=== PATIENT | male | born 1990 | race Caucasian/White ===

== ENCOUNTER 2016-08-23 18:45 | Emergency (ER) | payer SELFPAY ==
[2016-08-23] MEDS ORDERED: HYDROcod/ACET 5/325 Prepack 6 PO STA (19:44)
[2016-08-23] MEDS ORDERED: predniSONE 20 MG TABLET PO STA (19:44)
[2016-08-23] MEDS ORDERED: CYCLOBENZAPRINE 10 MG TABLET PO STA (19:44)
[2016-08-23] MEDS ORDERED: HYDROcod/ACET 5/325 Prepack 6 PO ONE (19:54)
[2016-08-23] MEDS ORDERED: predniSONE 20 MG TABLET ONE (19:55)
[2016-08-23] MEDS ORDERED: CYCLOBENZAPRINE 10 MG TABLET PO ONE (19:55)
== END 2016-08-23 20:18 | disposition home or self-care (01) ==
DX: M54.42 Lumbago with sciatica, left side (principal); G89.29 Other chronic pain; R03.0 Elevated blood-pressure reading, without diagnosis of hypertension; F17.200 Nicotine dependence, unspecified, uncomplicated
CPT/HCPCS: 99283; A9270; J7512

== ENCOUNTER 2020-03-31 15:35 | Emergency (ER) | payer MEDICAID ==
[2020-03-31] MEDS ORDERED: cefTRIAXone 1 GM VIAL IVP STA (16:19)
--- NOTE | 2020-03-31 16:22 | ED Physician Documentation ---
History of Present Illness - Stated complaint Stated Complaint: TOOTH/JAW PX - Chief complaint Chief Complaint: Heent - History obtained from History obtained from: Patient - Additonal information Additional information: 29-year-old male presents to the emergency department for right-sided facial swelling and pain. Symptoms began about 4 nights ago with progressive swelling since. He has had no fevers or cough. But reports that he can no longer eat or drink because he cannot open his jaw due to pain. 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 No fevers, no dysphonia, full range of motion of the neck. No muffled voice. Review of Systems Constitutional: denies: Fever, Chills Eyes: reports: Reviewed and negative Ears: reports: Reviewed and negative Nose: reports: Reviewed and negative Throat: reports: Dental pain / toothache, Other (trismus, poor dentition globally, right sided facial swelling). denies: Swollen tonsils, Swallowed foreign body Cardiac: reports: Reviewed and negative Respiratory: reports: Reviewed and negative GI: reports: Reviewed and negative : reports: Reviewed and negative Skin: reports: Reviewed and negative Musculoskeletal: reports: Reviewed and negative PD PAST MEDICAL HISTORY - Past Medical History Past Medical History: No Musculoskeletal: Chronic back pain - Past Surgical History Past Surgical History: No - Present Medications Home Medications: Ambulatory Orders Medication Instructions Recorded Confirmed Cyclobenzaprine [Flexeril] 10 mg PO TID PRN #20 tablet 08/23/16 HYDROcod/ACETAM 5/325 [[place] 5/325] 1 - 2 ea PO Q6H PRN #10 tablet 08/23/16 predniSONE [Deltasone] 60 mg PO DAILY 5 Days tablet 08/23/16 Amox/Clav 875/125 [Augmentin] 1 each PO Q12H #20 tablet 03/31/20 - Allergies Allergies/Adverse Reactions: Allergies Allergy/AdvReac Type Severity Reaction Status Date / Time No Known Drug Allergies Allergy Verified 03/31/20 15:39 - Social History Does the pt smoke?: Yes Smoking Status: Current every day smoker Does the pt drink ETOH?: No Does the pt have substance abuse?: No - Immunizations Immunizations are current?: No Immunizations: TDAP >10years/unknown - POLST Patient has POLST: No PD ED PE EXPANDED - General General: Alert, Well developed/nourished, In Pain - HEENT HEENT: Atraumatic, Moist mucous membranes, Pharyngeal erythema, Dental decay, Other (Teeth in generally poor repair. Positive trismus. Positive right-sided facial swelling from mid cheek to the angle of the mandible. No tongue swelling or swelling noted on the floor of the mouth. Normal swallow. Fairly significant generalized gum erythema.) Results - Vitals Vitals: Vital Signs - 24 hr 03/31/20 03/31/20 15:39 15:53 Temperature 36.6 C 36.6 C Heart Rate 53 L 55 L Respiratory 16 16 Rate Blood Pressure 123/68 123/66 O2 Saturation 96 100 Oxygen O2 Source Room air - Labs Labs: Laboratory Tests 03/31/20 03/31/20 16:25 16:25 WBC 12.2 H RBC 4.20 L Hgb 13.6 L Hct 38.7 L MCV 92.1 MCH 32.4 H MCHC 35.1 RDW 12.6 Plt Count 187 MPV 9.1 Neut # (Auto) 9.0 H Lymph # (Auto) 2.0 Kern # (Auto) 1.0 Eos # (Auto) 0.1 Baso # (Auto) 0.1 Absolute Nucleated RBC 0.00 Nucleated RBC % 0.0 Sodium 138 Potassium 3.8 Chloride 103 Carbon Dioxide 24 Anion Gap 11.0 BUN 19 Creatinine 0.9 Estimated GFR (MDRD) 100 Glucose 116 H Calcium 8.8 Total Bilirubin 0.8 AST 24 ALT 16 Alkaline Phosphatase 54 Total Protein 7.4 Albumin 4.1 Globulin 3.3 Albumin/Globulin Ratio 1.2 Lipase 25 - Rads (name of study) CT max/fac Radiology: Final report received (Soft tissue edema is seen in the right buccal area. No discrete well-formed abscess is seen. Dental caries and periapical lucency involving the right maxillary second molar.) PD MEDICAL DECISION MAKING - ED course Complexity details: reviewed results, re-evaluated patient, considered differential, d/w patient ED course: 29-year-old male presents to the emergency department with 4 days of right-sided facial swelling and right upper mouth pain. He does have mild trismus. He has a very poor dentition and has not seen a dentist in greater than 20 years. Given the trismus I was concerned about deeper space infection and a CT scan was completed. There is no well-formed abscess. Please see the fully dictated no te. Patient was given ceftriaxone here in the emergency department and will be discharged with a 10-day course of Augmentin. I also recommend ibuprofen for analgesia. We did discuss very close dental follow-up. Emergent return precautions discussed for hot potato voice, muffled voice, inability to tolerate oral secretions, severe facial swelling or if his symptoms fail to improve Departure - Departure Disposition: 01 Home, Self Care Clinical Impression: Right facial swelling, Infected dental carries Instructions: ED Abscess Dental, ED Dental Abscess Facial Cellulitis Prescriptions: Amox/Clav 875/125 [Augmentin] 1 each PO Q12H #20 tablet Comments: Miky you have multiple cavities that are causing infection in your face. However reassuringly the CT scan did not show any acute abscess. Please fill the prescription for the antibiotics and begin taking as directed. It is very important that you follow-up with a dentist as soon as possible. [facility] in the [facility] does have dental clinics and walk-in appointments are available. This may be an option for emergent dental care. Please rinse your mouth with warm salt water 3 times a day. Take ibuprofen or Tylenol [id number] for pain. If you are having worsening facial swelling, any fevers, develop inability to tolerate oral secretions, cannot turn your neck, or have a muffled voice then please return immediately to the emergency department
[2020-03-31] MEDS ORDERED: IOVERSOL 320 100 ML VIAL IVP ONE ×2 (16:28→19:23)
[2020-03-31 16:29] LABS: BASOPHILS # (AUTO) 0.1 10^3/uL (0.0-0.1); BASOPHILS % (AUTO) 0.5 %; EOSINOPHILS # (AUTO) 0.1 10^3/uL (0.0-0.7); HGB - HEMOGLOBIN 13.6 g/dL (14.0-18.0); LYMPHOCYTES % (AUTO) 16.6 %; MEAN CORPUSCULAR HEMOGLOBIN 32.4 pg (27.0-31.0); MEAN CORPUSCULAR HGB CONC 35.1 g/dL (32.0-36.0); MEAN CORPUSCULAR VOLUME 92.1 fL (80.0-94.0); MEAN PLATELET VOLUME 9.1 fL (7.4-11.4); MONOCYTES % (AUTO) 7.8 %; NEUTROPHILS % (AUTO) 73.7 %; PLT - PLATELET COUNT 187 10^3/uL (130-450); RED CELL DISTRIBUTION WIDTH 12.6 % (12.0-15.0); WHITE BLOOD COUNT 12.2 x10^3/uL (4.8-10.8)
[2020-03-31 16:42] LABS: ALBUMIN 4.1 g/dL (3.2-5.5); ALBUMIN/GLOBULIN RATIO 1.2 (1.0-2.2); BILIRUBIN,TOTAL 0.8 mg/dL (0.2-1.0); CALCIUM 8.8 mg/dL (8.5-10.3); CREATININE 0.9 mg/dL (0.6-1.2); TOTAL PROTEIN 7.4 g/dL (6.7-8.2)
--- NOTE | 2020-03-31 17:41 | CT Report ---
PROCEDURE: MAXILLOFACIAL W INDICATIONS: upper dental abscess right side with trismus CONTRAST: IV CONTRAST: Optiray 320 ml: 100 PO CONTRAST: *NO PO CONTRAST TECHNIQUE: After the administration of intravenous contrast, 3.0 mm axial sections acquired from the mid-neck to the frontal sinuses, with coronal reformatting. For radiation dose reduction, the following was use d: automated exposure control, adjustment of mA and/or kV according to patient size. COMPARISON: None. FINDINGS: Image quality: Excellent. Soft tissues: Soft tissue edema is seen involving the right buccal region. No discrete fluid collect ion or abscess is seen. No significantly enlarged lymph nodes. The included portions of the brain de monstrate no acute abnormality. Vascular: Visualized vascular structures appear patent throughout. Bony vascular foramina and canal s appear normal. Bones: Facial bones appear intact, without fractures, erosions, or destruction. Visualized portions of the skull base and auditory canals also appear normal. Dental caries and periapical lucencies are seen involving the right maxillary second molar. Incompletely erupted maxillary third molars are see n bilaterally. Sinuses: Mild mucosal thickening is seen in the right maxillary sinus and the anterior ethmoid air c ells. Paranasal sinuses are and lateral aerated without fluid levels, mucosal thickening, or mucocele s. Mastoid air cells are aerated. IMPRESSION: 1. Soft tissue edema is seen in the right buccal area. No discrete well-formed abscess is seen. 2. Dental caries and periapical lucency involving the right maxillary second molar. Reviewed by: Dominic Peñaloza MD on 03/31/2020 5:40 PM PDT Approved by: Dominic Peñaloza MD on 03/31/2020 5:40 PM PDT Station ID: [id number]
[2020-03-31 18:38] VITALS: BP 120/70
== END 2020-03-31 18:37 | disposition home or self-care (01) ==
LOC: ED 15:35
DX: K04.7 Periapical abscess without sinus (principal); K02.9 Dental caries, unspecified; R22.0 Localized swelling, mass and lump, head; F17.200 Nicotine dependence, unspecified, uncomplicated
CPT/HCPCS: 36415; 70487; 80053; 83690; 85025; 96374; 99283; 99284; Q9967

== ENCOUNTER 2020-04-27 08:57 | Emergency (ER) | payer OTHER, MEDICAID ==
[2020-04-27] MEDS ORDERED: CHERRY SYRUP 10 ML UDC PO ONE (09:25)
[2020-04-27] MEDS ORDERED: KETOROLAC 60 MG/2 ML VIAL IM STA (09:25)
[2020-04-27] MEDS ORDERED: DEXAMETHASONE 10 MG/ML VIAL PO STA (09:25)
--- NOTE | 2020-04-27 09:52 | ED Physician Documentation ---
PD HPI UPPER EXT INJURY - Stated complaint Stated Complaint: NECK PX - Chief complaint Chief Complaint: Trauma Hd/Nk - History obtained from History obtained from: Patient - History of Present Illness Location: Left, Shoulder Type of injury: Other (heavy lifting at work) Where injury occurred: Work Timing - onset: How many days ago (3) Timing - duration: Days (3) Timing - details: Gradual onset, Still present Improved by: Rest, Immobilization Worsened by: Moving, Palpating Associated symptoms: No: Weakness, Numbness, Tingling, Swelling Contributing factors: No: Anticoagulated, Prior ortho surgery Similar symptoms before: Has not had sx before Recently seen: Emergency Dept - Additonal information Additional information: Previously well 29-year-old male has developed pain in his left shoulder after lifting some very heavy boards. He states that the shoulder hurt a little bit a t first and he was able to complete his day of work after living lifting several boards that way 60 pounds apiece. He states that he is lifted these previously without injuring himself and he did not feel that at the time the injury was significant. Over the next 2 days he had mounting pain and today he is unable to move his neck without severe pain. He is using a lidocaine patch and ibuprofen. Review of Systems Constitutional: denies: Fever Eyes: denies: Decreased vision Ears: denies: Ear pain Throat: denies: Sore throat Cardiac: denies: Chest pain / pressure Respiratory: denies: Dyspnea, Cough GI: denies: Abdominal Pain, Nausea, Vomiting : denies: Dysuria Skin: denies: Rash Musculoskeletal: reports: Neck pain, Extremity pain, Joint pain. denies: Back pain, Joint swelling Neurologic: denies: Generalized weakness, Focal weakness, Numbness PD PAST MEDICAL HISTORY - Past Medical History Past Medical History: Yes Cardiovascular: None Respiratory: Asthma Neuro: None Endocrine/Autoimmune: None GI: None : None HEENT: None Psych: None Musculoskeletal: Chronic back pain Derm: Other - Past Surgical History Past Surgical History: No - Present Medications Home Medications: Ambulatory Orders Medication Instructions Recorded Confirmed Hydrocodone/Acetaminophen 1 - 2 each PO Q6H PRN #14 tablet 04/27/20 [Hydrocodone-Acetamin 5-325 mg] Ibuprofen 800 mg PO Q8HR PRN 04/27/20 04/27/20 Lidocaine Patch 5% [Lidoderm Patch] 1 each TOP DAILY PRN 04/27/20 04/27/20 Meloxicam 15 mg PO DAILY PRN #20 tablet 04/27/20 - Allergies Allergies/Adverse Reactions: Allergies Allergy/AdvReac Type Severity Reaction Status Date / Time No Known Drug Allergies Allergy Verified 04/27/20 09:02 - Social History Does the pt smoke?: No Smoking Status: Former smoker Does the pt drink ETOH?: No Does the pt have substance abuse?: Yes Substance Use and Type: Marijuana - Immunizations Immunizations are current?: No Immunizations: TDAP >10years/unknown - POLST Patient has POLST: No PD ED PE NORMAL - Vitals Vital signs reviewed: Yes (hypertensive ) - General General: Alert and oriented X 3, No acute distress, Well developed/nourished - HEENT HEENT: Atraumatic, PERRL, EOMI - Neck Neck: Supple, no meningeal sign, No bony TTP, Other (mild pain along the trapezius and over the supraspinatous. There is a lidocaine patch over the supraspinatous... ) - Derm Derm: Normal color, Warm and dry, No rash - Extremities Extremities: No deformity, No edema, Other (The patient is able to move the shoulder in a full range of motion without crepitance or obstruction he is able to hold the arm in abduction he has pain with all of this movement. Pain is centered over the trapezius over the supraspinatus. 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, No motor deficit, No sensory deficit, Normal speech Eye Opening: Spontaneous Motor: Obeys Commands Verbal: Oriented GCS Score: 15 - Psych Psych: Normal mood, Normal affect Results - Vitals Vitals: Vital Signs - 24 hr 04/27/20 09:02 Temperature 36.7 C Heart Rate 62 Respiratory 16 Rate Blood Pressure 147/91 H O2 Saturation 95 Oxygen O2 Source Room air - Rads (name of study) Left shoulder Radiology: Prelim report reviewed, EMP read indepedently, See rad report PD MEDICAL DECISION MAKING - ED course Complexity details: reviewed results, re-evaluated patient, considered differential, d/w patient ED course: 29-year-old male with pain in the left shoulder and over the supraspinatus appears to have strained his shoulder with heavy lifting and he is placed into a sling given a shot of Toradol and a dose of dexamethasone we will place him on some meloxicam and given some pain medication for use at night. Departure - Departure Disposition: 01 Home, Self Care Clinical Impression: Cervical radiculopathy Left shoulder strain Qualifiers: Encounter type: initial encounter Qualified Code(s): S46.912A - Strain of unspecified muscle, fascia and tendon at shoulder and upper arm level, left arm, initial encounter Condition: Stable Instructions: ED Sprain Strain Neck, ED Sprain Shoulder Follow-Up: [facility] [Provider Group] Prescriptions: Hydrocodone/Acetaminophen [Hydrocodone-Acetamin 5-325 mg] 1 - 2 each PO Q6H PRN #14 tablet PRN Reason: Pain Meloxicam 15 mg PO DAILY PRN #20 tablet PRN Reason: Pain Forms: Activity restrictions
[2020-04-27 10:16] VITALS: BP 137/84
--- NOTE | 2020-04-27 10:25 | XRAY Report ---
PROCEDURE: Shoulder 3 View LT INDICATIONS: strain with supraspinatous pain TECHNIQUE: 3 views of the shoulder were acquired. COMPARISON: None. FINDINGS: Bones: No fractures or dislocations. No suspicious bony lesions. Visualized ribs appear intact. Soft tissues: No suspicious soft tissue calcifications. IMPRESSION: 1. No fracture or dislocation. Reviewed by: Jean Carlos Clements MD on 04/27/2020 10:[address] [facility] Approved by: Jean Carlos Clements MD on 04/27/2020 10:[address] [facility] Station ID: [id number]
== END 2020-04-27 10:17 | disposition home or self-care (01) ==
LOC: ED 08:57
DX: S46.912A Strain of unspecified muscle, fascia and tendon at shoulder and upper arm level, left arm, initial encounter (principal); X50.0XXA Overexertion from strenuous movement or load, initial encounter; Y93.89 Activity, other specified; Y99.0 Civilian activity done for income or pay; M54.12 Radiculopathy, cervical region; Z87.891 Personal history of nicotine dependence
CPT/HCPCS: 73030; 96372; 99283; 99284; A9270

== ENCOUNTER 2021-07-24 01:49 | Outpatient (CLI) | payer MEDICAID | END 2021-07-24 01:50 | disposition critical access hospital (66) | LOC: EMS 01:49 | DX: H57.10 Ocular pain, unspecified eye (principal); H53.9 Unspecified visual disturbance | CPT/HCPCS: A0425; A0429; A0999 ==

== ENCOUNTER 2021-07-24 02:12 | Emergency (ER) | payer OTHER, MEDICAID ==
[2021-07-24] MEDS ORDERED: PROPARACAINE 0.5% OPHTH DROPS 15 ML EACHEYE STA ×2 (02:20→03:25)
[2021-07-24] MEDS ORDERED: KETOROLAC 30 MG/ML VIAL IM STA (02:51)
--- NOTE | 2021-07-24 02:54 | ED Physician Documentation ---
History of Present Illness - Stated complaint Stated Complaint: EYE PX - Chief complaint Chief Complaint: Heent - History obtained from History obtained from: Patient - Additonal information Additional information: 31yM with pmh frequent eye injury in the past p/w eye irritation waking him from sleep early this morning. patient works in shipyard and wears eye protection but states he thinks bits of metal may be getting up and under the goggles from the top and bottom. +tearing, pain. Review of Systems Eyes: reports: Irritation PD PAST MEDICAL HISTORY - Past Medical History Past Medical History: Yes Cardiovascular: None Respiratory: Asthma Neuro: None Endocrine/Autoimmune: None GI: None : None HEENT: None Psych: None Musculoskeletal: Chronic back pain, Other Derm: Other Other Past Medical History: Bilat Torn rotator cuffs - Past Surgical History Past Surgical History: No - Present Medications Home Medications: Ambulatory Orders Medication Instructions Recorded Confirmed Hydrocodone/Acetaminophen 1 - 2 each PO Q6H PRN #14 tablet 04/27/20 07/24/21 [Hydrocodone-Acetamin 5-325 mg] Ibuprofen 800 mg PO Q8HR PRN 04/27/20 07/24/21 Lidocaine Patch 5% [Lidoderm Patch] 1 each TOP DAILY PRN 04/27/20 07/24/21 Meloxicam 15 mg PO DAILY PRN #20 tablet 04/27/20 07/24/21 Mineral Oil/Petrolatum,White 3.5 gm OP QPM #1 bottle 07/24/21 [Lubricant Pm Eye Ointment] Ofloxacin 0.3% Ophth Drops 1 drops EACHEYE Q4H #5 ml 07/24/21 [Ocuflox 0.3% Ophth Drops] - Allergies Allergies/Adverse Reactions: Allergies Allergy/AdvReac Type Severity Reaction Status Date / Time No Known Drug Allergies Allergy Verified 07/24/21 02:22 - Social History Does the pt smoke?: No Smoking Status: Never smoker Does the pt drink ETOH?: No Does the pt have substance abuse?: Yes - Immunizations Immunizations are current?: No Immunizations: TDAP >10years/unknown - POLST Patient has POLST: No PD ED PE NORMAL - Vitals Vital signs reviewed: Yes - General General: Alert and oriented X 3, No acute distress, Well developed/nourished - HEENT HEENT: Atraumatic, PERRL, EOMI, Other (initially unable to open eyes. resolved with proparacaine eye drops. no visible foreign body. BL corneal abrasions in lower field of cornea on fluorescein exam. no foreign body on eversion of lids) Results - Vitals Vitals: Vital Signs - 24 hr 07/24/21 02:18 Temperature 35.9 C L Heart Rate 65 Respiratory 20 Rate Blood Pressure 135/79 H O2 Saturation 95 Oxygen O2 Source Room air PD MEDICAL DECISION MAKING - ED course ED course: 31yM p/w BL corneal abrasions without foreign body. eye drops and ointment prescribed. recommend ophtho f/u given that he reports recurrent eye injury. return precautions discussed. Departure - Departure Disposition: 01 Home, Self Care Clinical Impression: Bilateral corneal abrasions Condition: Good Instructions: ED Eye Injury Corneal Abrasion Prescriptions: Mineral Oil/Petrolatum,White [Lubricant Pm Eye Ointment] 3.5 gm OP QPM #1 bottle Ofloxacin 0.3% Ophth Drops [Ocuflox 0.3% Ophth Drops] 1 drops EACHEYE Q4H #5 ml Comments: You were seen in the ED for evaluation of scratches on the eyes (corneal abrasions). Please use the eye drops prescribed and follow up with ophthalmology. Return to the ED if you have worsening vision or pain. Take ibuprofen 600 mg every 6 hours for pain. Forms: Activity restrictions
[2021-07-24] MEDS ORDERED: oxyCODONE 5 MG TABLET PO STA (03:04)
[2021-07-24] MEDS ORDERED: HYDROmorphone 1 MG/ML CARPUJECT IM STA (05:32)
[2021-07-24] MEDS ORDERED: CYCLOPENTOLATE 2% OPHTH DROPS 2 ML EACHEYE ONE (05:41)
[2021-07-24] MEDS ORDERED: CYCLOPENTOLATE 1% OPHTH DROPS 2 ML EACHEYE ONE (05:41)
[2021-07-24 07:10] VITALS: BP 118/64
== END 2021-07-24 06:30 | disposition home or self-care (01) ==
LOC: EDUNIT# → EDBD → ED 02:12
DX: S05.02XA Injury of conjunctiva and corneal abrasion without foreign body, left eye, initial encounter (principal); S05.01XA Injury of conjunctiva and corneal abrasion without foreign body, right eye, initial encounter; X58.XXXA Exposure to other specified factors, initial encounter; Y92.62 Dock or shipyard as the place of occurrence of the external cause; Y99.0 Civilian activity done for income or pay
CPT/HCPCS: 96372; 99283; A9270; J1170; J3490

== ENCOUNTER 2022-08-22 12:46 | Outpatient (CLI) | payer MEDICAID ==
--- NOTE | 2022-08-22 17:27 | XRAY Report ---
PROCEDURE: Cervical Spine 2 View INDICATIONS: CERVICAL RADICULOPATHY TECHNIQUE: 3 view(s) of the cervical spine were acquired. COMPARISON: None. FINDINGS: Bones: No fractures or dislocations to the C7-T1 level. The lateral masses of C1 appear intact on t he odontoid view. No suspicious bony lesions. Soft tissues: No prevertebral soft tissue swelling. IMPRESSION: Unremarkable radiographic examination of cervical spine. Reviewed by: John Saini MD on 08/22/2022 5:25 PM PST Approved by: John Saini MD on 08/22/2022 5:25 PM PST Station ID: [id number]
== END 2022-08-22 12:48 | disposition home or self-care (01) ==
LOC: DI.S 12:46
PROVIDERS: ATTEND Physician Assistant
DX: M54.12 Radiculopathy, cervical region (principal)

== ENCOUNTER 2023-01-19 16:47 | Outpatient (CLI) | payer MEDICAID, OTHER | END 2023-01-19 16:48 | disposition critical access hospital (66) | LOC: EMS 16:47 | DX: M54.2 Cervicalgia (principal); M25.512 Pain in left shoulder; M79.602 Pain in left arm; R20.0 Anesthesia of skin; M25.612 Stiffness of left shoulder, not elsewhere classified; W01.0XXA Fall on same level from slipping, tripping and stumbling without subsequent striking against object, initial encounter; Y92.69 Other specified industrial and construction area as the place of occurrence of the external cause; Y99.0 Civilian activity done for income or pay | CPT/HCPCS: A0425; A0429 ==

== ENCOUNTER 2023-01-19 17:21 | Emergency (ER) | payer MEDICAID, OTHER ==
--- NOTE | 2023-01-19 17:31 | ED Physician Documentation ---
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 He had increasing pain and headaches and starting early this morning developed numbness in the small 2 fingers of the left hand. He was seen at the walk-in clinic and referred here for imaging after c-collar. PD PAST MEDICAL HISTORY - Past Medical History Cardiovascular: None Respiratory: Asthma Neuro: None Endocrine/Autoimmune: None GI: None : None HEENT: None Psych: None Musculoskeletal: Chronic back pain, Other Derm: Other - Past Surgical History Past Surgical History: No - Present Medications Home Medications: Ambulatory Orders Medication Instructions Recorded Confirmed Hydrocodone/Acetaminophen 1 - 2 each PO Q6H PRN #14 tablet 04/27/20 07/24/21 [Hydrocodone-Acetamin 5-325 mg] Ibuprofen 800 mg PO Q8HR PRN 04/27/20 07/24/21 Lidocaine Patch 5% [Lidoderm Patch] 1 each TOP DAILY PRN 04/27/20 07/24/21 Meloxicam 15 mg PO DAILY PRN #20 tablet 04/27/20 07/24/21 Mineral Oil/Petrolatum,White 3.5 gm OP QPM #1 bottle 07/24/21 [Lubricant Pm Eye Ointment] Ofloxacin 0.3% Ophth Drops 1 drops EACHEYE Q4H #5 ml 07/24/21 [Ocuflox 0.3% Ophth Drops] - Allergies Allergies/Adverse Reactions: Allergies Allergy/AdvReac Type Severity Reaction Status Date / Time No Known Drug Allergies Allergy Verified 01/19/23 17:29 - Social History Does the pt smoke?: No Smoking Status: Never smoker Does the pt drink ETOH?: No Does the pt have substance abuse?: Yes - Immunizations Immunizations are current?: No Immunizations: TDAP >10years/unknown - POLST Patient has POLST: No PD ED PE NORMAL - Vitals Vital signs reviewed: Yes - General General: Alert and oriented X 3, No acute distress - HEENT HEENT: PERRL, EOMI - Neck Neck: Other (Quite tender over the low C-spine and c-collar maintained pending imaging.) - Extremities Extremities: Other (Decreased lens fabricating machine tender strength on the left, intact interosseous and thumb extension. Normal flexion extension of the wrist. Decreased sensation over the left fourth and fifth fingers, not absent.) Results - Vitals Vitals: Vital Signs - 24 hr 01/19/23 01/19/23 17:26 18:43 Temperature 36.0 C L Heart Rate 66 71 Respiratory 12 15 Rate Blood Pressure 151/72 H 107/60 O2 Saturation 96 95 Oxygen O2 Source Room air - Rads (name of study) CT of the head and cervical spine were negative for acute abnormalities. Relevant Findings:: Final report received, EMP independent interpretation of test PD Medical Decision Making - ED course ED course: Note for MIPS review: He has a focal neurologic deficit. 32-year-old gentleman who has some numbness of the left second and third fingers of the left hand. He had a head neck injury a week ago but the numbness was starting well after that. Of note he does have a history of cervical radiculopathy. CT of the head and neck were negative. He had full range of motion after that of the neck. Departure - Departure Disposition: 01 Home, Self Care Clinical Impression: Cervical radiculitis, Injury of head and neck Condition: Good Record reviewed to determine appropriate education?: Yes Instructions: ED Head Injury Closed, ED Sprain Strain Neck Comments: Ibuprofen as needed for pain. Return for new or worsening symptoms. Follow-up with your doctor in a week if not completely improved. Your blood pressure was elevated today on check into the emergency department. This does not mean that you have hypertension, it is a common phenomenon to come to the emergency department and have elevated blood pressure. I recommend that you see your primary care physician within the week to have it rechecked when you are feeling better. Forms: PCP List Discharge Date/Time: 01/19/23 18:43
--- NOTE | 2023-01-19 18:24 | CT Report ---
PROCEDURE: HEAD WO INDICATIONS: head/neck inj TECHNIQUE: Noncontrast 4.5 mm thick angled axial sections acquired from the foramen magnum to the vertex. For r adiation dose reduction, the following was used: automated exposure control, adjustment of mA and/or kV according to patient size. COMPARISON: Correlation is made with the accompanying cervical spine CT. Correlation is also made to prior maxillofacial CT, 03/31/2020. FINDINGS: Image quality: There is streak artifact seen through the skull base. CSF spaces: Basal cisterns are patent. No extra-axial fluid collections. Ventricles are normal in size and shape. Brain: No midline shift. No intracranial masses or hemorrhage. Hall-white matter interface is norm al. Skull and face: Calvarium and visualized facial bones are intact, without suspicious lesions. Sinuses: Visualized sinuses and mastoids are clear. IMPRESSION: No intracranial hemorrhage is seen. No significant intracranial abnormality is seen. Reviewed by: Luis Ching MD on 01/19/2023 5:23 PM [facility] Approved by: Luis Ching MD on 01/19/2023 5:23 PM [facility] Station ID: [id number]
--- NOTE | 2023-01-19 18:24 | CT Report ---
PROCEDURE: CERVICAL SPINE WO INDICATIONS: head/neck inj TECHNIQUE: Noncontrast 3 mm thick sections acquired from the skull base to the T4 level. Sagittal and coronal r eformats were then constructed. For radiation dose reduction, the following was used: automated exp osure control, adjustment of mA and/or kV according to patient size. COMPARISON: Correlation is made with the accompanying head CT and cervical spine plain films. FINDINGS: Image quality: Excellent. Bones: No fractures or dislocations. Visualized superior ribs are intact. Soft tissues: Prevertebral soft tissues are normal in thickness. No paravertebral hematomas. No ap ical pneumothoraces. IMPRESSION: Negative for cervical spine fracture. Reviewed by: Luis Ching MD on 01/19/2023 5:22 PM [facility] Approved by: Luis Ching MD on 01/19/2023 5:22 PM [facility] Station ID: [id number]
[2023-01-19 18:47] VITALS: BP 107/60
== END 2023-01-19 18:43 | disposition home or self-care (01) ==
LOC: EDSEX → EDUNIT# → ED 17:21
DX: M54.12 Radiculopathy, cervical region (principal); S09.90XA Unspecified injury of head, initial encounter; S19.9XXA Unspecified injury of neck, initial encounter; W17.89XA Other fall from one level to another, initial encounter; Y92.62 Dock or shipyard as the place of occurrence of the external cause; Y99.0 Civilian activity done for income or pay
CPT/HCPCS: 99283; 99284